=== PATIENT | female | born 1995 | race Caucasian/White ===

== ENCOUNTER 2016-05-28 14:01 | Emergency (ER) | payer OTHER ==
[2016-05-28 14:08] VITALS: BP 142/76; TEMP 97.7
[2016-05-28 15:13] LABS: BASO # 0.1 (0.0-0.2); BASO % 0.4 % (0.0-2.0); GRAN # 12.7 (1.4-6.5); GRAN % 91.6 % (42.2-75.2); HEMATOCRIT 41.7 % (37.0-47.0); HEMOGLOBIN 14.6 g/dl (12.5-16.0); LYMPH # 0.6 (1.2-3.4); LYMPH % 4.1 % (20.0-51.0); MEAN CELL VOLUME 93 fl (80.0-100.0); MEAN CORPUSCULAR HEMOGLOBIN 33 pg (27.0-31.0); MEAN CORPUSCULAR HGB CONC 35 g/dl (33.0-37.0); MONO # 0.5 (0.1-0.6); MONO % 3.5 % (1.7-9.3); PLATELET COUNT 282 K/mm3 (130-400); RED BLOOD COUNT 4.48 M/mm3 (4.10-5.30); REDCELL DISTRIBUTION WIDTH-CV 11.9 % (11.5-14.5); WHITE BLOOD COUNT 13.8 K/mm3 (4.8-10.8)
[2016-05-28] MEDS ORDERED: BENZACLIN 5%-1%1 GEL TOP (15:15)
[2016-05-28 15:29] LABS: ADJUSTED CALCIUM 9.3 mg/dL (8.4-10.2); ALANINE AMINOTRANSFERASE 19 U/L (9-52); ALBUMIN 4.6 gm/dL (3.5-5.0); ALKALINE PHOSPHATASE 52 U/L (50-136); ANION GAP 15 mmol/L (7-16); BLOOD UREA NITROGEN 9 mg/dL (7-17); CALCIUM 9.8 mg/dL (8.4-10.2); CARBON DIOXIDE 21 mmol/L (22-30); CHLORIDE 104 mmol/L (98-107); GLUCOSE 142 mg/dL (74-106); LIPASE 48 U/L (23-300); POTASSIUM 3.9 mmol/L (3.4-5.0); SODIUM 140 mmol/L (137-145); TOTAL PROTEIN 7.8 gm/dL (6.4-8.2)
[2016-05-28 15:32] LABS: C-REACTIVE PROTEIN < 0.5 mg/dL (0.0-0.9)
[2016-05-28] MEDS ORDERED: PHENERGAN 25 TA25 MG PO (15:47)
[2016-05-28 16:17] VITALS: PULSE 77
== END 2016-05-28 16:17 | disposition home or self-care (01) ==
LOC: COL.ER 14:01
PROVIDERS: Physician Assistant
DX: R11.2 Nausea with vomiting, unspecified (principal); R19.7 Diarrhea, unspecified
CPT/HCPCS: J2405; J2765; J7030

== ENCOUNTER 2016-08-06 16:16 | Emergency (ER) | payer OTHER ==
[~2016-08-06] VITALS: Ht 170.2 cm; Wt 68.2 kg
[~2016-08-06 16:16] MED LIST: BENZACLIN 5%-1%1 GEL TOP; PHENERGAN 25 TA25 MG PO
[2016-08-06 16:23] VITALS: TEMP 98.1
[2016-08-06 16:54] LABS: BASO # 0.1 (0.0-0.2); BASO % 0.3 % (0.0-2.0); GRAN # 13.6 (1.4-6.5); GRAN % 92.2 % (42.2-75.2); HEMATOCRIT 38.1 % (37.0-47.0); HEMOGLOBIN 13.3 g/dl (12.5-16.0); LYMPH # 0.6 (1.2-3.4); LYMPH % 4.3 % (20.0-51.0); MEAN CELL VOLUME 93 fl (80.0-100.0); MEAN CORPUSCULAR HEMOGLOBIN 32 pg (27.0-31.0); MEAN CORPUSCULAR HGB CONC 35 g/dl (33.0-37.0); MEAN PLATELET VOLUME 9.1 fl (7.4-10.4); MONO # 0.4 (0.1-0.6); MONO % 2.8 % (1.7-9.3); PLATELET COUNT 253 K/mm3 (130-400); RED BLOOD COUNT 4.12 M/mm3 (4.10-5.30); REDCELL DISTRIBUTION WIDTH-CV 11.9 % (11.5-14.5); WHITE BLOOD COUNT 14.8 K/mm3 (4.8-10.8)
[2016-08-06 16:57] LABS: ADJUSTED CALCIUM 8.9 mg/dL (8.4-10.2); ALBUMIN 4.2 gm/dL (3.5-5.0); BILIRUBIN,TOTAL 1.6 mg/dL (0.0-1.0); CALCIUM 9.1 mg/dL (8.4-10.2); CREATININE, serum 0.73 mg/dL (0.52-1.25); POTASSIUM 4.1 mmol/L (3.4-5.0); TOTAL PROTEIN 6.9 gm/dL (6.4-8.2)
[2016-08-06] MEDS ORDERED: PHENERGAN 25 TA25 MG PO (18:30)
[2016-08-06 18:36] VITALS: BP 109/79; PULSE 87
== END 2016-08-06 18:38 | disposition home or self-care (01) ==
LOC: COL.ER 16:16
PROVIDERS: Emergency Medicine
DX: K52.9 Noninfective gastroenteritis and colitis, unspecified (principal)
CPT/HCPCS: J2550; J7030

== ENCOUNTER 2016-08-09 15:59 | Emergency (ER) | payer OTHER ==
[~2016-08-09] VITALS: Ht 170.2 cm; Wt 68.2 kg
[2016-08-09 16:07] VITALS: BP 133/71; TEMP 98.1
[2016-08-09 17:11] LABS: BASO # 0.1 (0.0-0.2); BASO % 0.4 % (0.0-2.0); EOS % 0.1 % (0-4.0); GRAN % 85.2 % (42.2-75.2); HEMATOCRIT 40.1 % (37.0-47.0); HEMOGLOBIN 14.6 g/dl (12.5-16.0); LYMPH # 1.1 (1.2-3.4); LYMPH % 7.9 % (20.0-51.0); MEAN CELL VOLUME 89 fl (80.0-100.0); MEAN CORPUSCULAR HEMOGLOBIN 32 pg (27.0-31.0); MEAN CORPUSCULAR HGB CONC 36 g/dl (33.0-37.0); MEAN PLATELET VOLUME 8.8 fl (7.4-10.4); MONO # 0.9 (0.1-0.6); PLATELET COUNT 266 K/mm3 (130-400); RED BLOOD COUNT 4.52 M/mm3 (4.10-5.30); REDCELL DISTRIBUTION WIDTH-CV 11.7 % (11.5-14.5); WHITE BLOOD COUNT 14.1 K/mm3 (4.8-10.8)
[2016-08-09 17:35] LABS: ALANINE AMINOTRANSFERASE 26 U/L (9-52); ALBUMIN 4.4 gm/dL (3.5-5.0); ALKALINE PHOSPHATASE 54 U/L (50-136); ANION GAP 15 mmol/L (7-16); BILIRUBIN,TOTAL 1.9 mg/dL (0.0-1.0); BLOOD UREA NITROGEN 13 mg/dL (7-17); CALCIUM 9.3 mg/dL (8.4-10.2); CARBON DIOXIDE 23 mmol/L (22-30); CHLORIDE 99 mmol/L (98-107); CREATININE, serum 0.86 mg/dL (0.52-1.25); GLUCOSE 104 mg/dL (74-106); LIPASE 82 U/L (23-300); POTASSIUM 3.5 mmol/L (3.4-5.0); SODIUM 137 mmol/L (137-145); TOTAL PROTEIN 7.2 gm/dL (6.4-8.2)
[2016-08-09 17:37] LABS: C-REACTIVE PROTEIN < 0.5 mg/dL (0.0-0.9)
[2016-08-09 19:06] LABS: PH 9 (5-8); URINE APPEARANCE Cloudy; URINE BACTERIA None Seen /hpf; URINE BILIRUBIN Negative (NEGATIVE); URINE BLOOD 2+ (NEGATIVE); URINE COLOR Yellow; URINE GLUCOSE Negative (NEGATIVE); URINE KETONE 2+ (NEGATIVE); URINE UROBILINOGEN Negative (NEGATIVE); URINE WBC >50 /hpf
[2016-08-09] MEDS ORDERED: CEFTIN 250250 MG/TAB PO (19:48)
[2016-08-09] MEDS ORDERED: ZOFRAN ODT4 MG PO (19:48)
[2016-08-09] MEDS ORDERED: NORCO 325 MG-51 TAB PO (19:48)
[2016-08-09] MEDS ORDERED: PHENERGAN25 MG RC (20:27)
[2016-08-09 20:55] VITALS: PULSE 76
== END 2016-08-09 20:30 | disposition home or self-care (01) ==
LOC: COL.ER 15:59
PROVIDERS: Nurse Practitioner
DX: N39.0 Urinary tract infection, site not specified (principal); R10.31 Right lower quadrant pain; R10.11 Right upper quadrant pain; R19.7 Diarrhea, unspecified; R11.2 Nausea with vomiting, unspecified
CPT/HCPCS: J2550; J3010; J7030; Q9967

== ENCOUNTER 2016-12-18 08:48 | Emergency (ER) | payer OTHER ==
[~2016-12-18] VITALS: Ht 170.2 cm; Wt 68.2 kg
[~2016-12-18 08:48] MED LIST changes: +CEFTIN 250250 MG/TAB PO; +NORCO 325 MG-51 TAB PO; +PHENERGAN25 MG RC; +ZOFRAN ODT4 MG PO
[2016-12-18 08:52] VITALS: BP 120/81; TEMP 97.5
[2016-12-18] MEDS ORDERED: ANXIETY MEDICATION (08:56)
[2016-12-18 09:22] LABS: BASO # 0.1 (0.0-0.2); BASO % 0.6 % (0.0-2.0); EOS # 0.1 (0.0-0.7); EOS % 0.3 % (0-4.0); GRAN % 84.4 % (42.2-75.2); HEMATOCRIT 42.7 % (37.0-47.0); LYMPH # 1.9 (1.2-3.4); LYMPH % 10.8 % (20.0-51.0); MEAN CELL VOLUME 92 fl (80.0-100.0); MEAN CORPUSCULAR HEMOGLOBIN 32 pg (27.0-31.0); MEAN CORPUSCULAR HGB CONC 35 g/dl (33.0-37.0); MONO # 0.6 (0.1-0.6); MONO % 3.3 % (1.7-9.3); PLATELET COUNT 260 K/mm3 (130-400); RED BLOOD COUNT 4.66 M/mm3 (4.10-5.30); WHITE BLOOD COUNT 17.7 K/mm3 (4.8-10.8)
[2016-12-18 09:32] LABS: ADJUSTED CALCIUM 9.2 mg/dL (8.4-10.2); ALBUMIN 4.8 gm/dL (3.5-5.0); BILIRUBIN,TOTAL 1.7 mg/dL (0.0-1.0); CALCIUM 9.8 mg/dL (8.4-10.2); CREATININE, serum 0.89 mg/dL (0.52-1.25); POTASSIUM 3.9 mmol/L (3.4-5.0); TOTAL PROTEIN 7.8 gm/dL (6.4-8.2)
[2016-12-18 10:20] LABS: COLLECTION METHOD CLEAN CATCH
[2016-12-18 10:39] LABS: MUCOUS Present /lpf; PH 5 (5-8); URINE APPEARANCE Hazy; URINE BACTERIA None Seen /hpf; URINE BILIRUBIN Negative (NEGATIVE); URINE BLOOD Negative (NEGATIVE); URINE COLOR Yellow; URINE GLUCOSE Negative (NEGATIVE); URINE KETONE 2+ (NEGATIVE); URINE LEUKOCYTE ESTERASE Trace (NEGATIVE); URINE PROTEIN(semi-quant) 1+ (NEGATIVE); URINE RBC 0-2 /hpf; URINE UROBILINOGEN Negative (NEGATIVE)
[2016-12-18] MEDS ORDERED: ZOFRAN ODT4 MG PO (11:59)
[2016-12-18 12:17] VITALS: PULSE 72
== END 2016-12-18 12:17 | disposition home or self-care (01) ==
LOC: COL.ER 08:48
PROVIDERS: Physician Assistant
DX: R11.2 Nausea with vomiting, unspecified (principal); R19.7 Diarrhea, unspecified; F41.9 Anxiety disorder, unspecified; Z32.02 Encounter for pregnancy test, result negative
CPT/HCPCS: J1200; J2060; J2405; J2550; J7030; J7040

== ENCOUNTER → 2017-03-29 | Outpatient (CLI) | payer OTHER ==
[~2017-03-29] MED LIST changes: +ANXIETY MEDICATION
== END ==
LOC: COL.RAD 07:28
DX: R11.2 Nausea with vomiting, unspecified (principal)
CPT/HCPCS: A9541

== ENCOUNTER → 2020-06-27 | Outpatient (CLI) | payer BC | LOC: COL.RAD 13:20 | DX: K42.9 Umbilical hernia without obstruction or gangrene (principal) ==

== ENCOUNTER → 2020-07-24 | Outpatient (CLI) | payer BC | LOC: COL.RAD 07-08 10:30 | DX: R22.2 Localized swelling, mass and lump, trunk (principal) ==

== ENCOUNTER 2020-07-25 12:37 | Emergency (ER) | payer BC ==
[~2020-07-25] VITALS: Ht 170.2 cm; Wt 68.6 kg
[2020-07-25 14:28] LABS: HEMOGLOBIN 13.9 g/dl (12.5-16.0); MEAN CELL VOLUME 91 fl (80.0-100.0); MEAN CORPUSCULAR HEMOGLOBIN 32 pg (27.0-31.0); MEAN CORPUSCULAR HGB CONC 36 g/dl (33.0-37.0); MEAN PLATELET VOLUME 8.8 fl (7.4-10.4); PLATELET COUNT 297 K/mm3 (130-400); RED BLOOD COUNT 4.31 M/mm3 (4.10-5.30)
[2020-07-25 14:40] LABS: ALANINE AMINOTRANSFERASE 19 U/L (4-34); ALBUMIN 4.5 gm/dL (3.5-5.0); ALKALINE PHOSPHATASE 42 U/L (50-136); AST,SGOT 32 U/L (15-37); BILIRUBIN,TOTAL 1.5 mg/dL (0.0-1.0); BLOOD UREA NITROGEN 15 mg/dL (7-17); CALCIUM 9.7 mg/dL (8.4-10.2); CARBON DIOXIDE 20 mmol/L (22-30); CHLORIDE 109 mmol/L (98-107); GLUCOSE 141 mg/dL (74-106); POTASSIUM 4.1 mmol/L (3.4-5.0); TOTAL PROTEIN 7.7 gm/dL (6.4-8.2)
[2020-07-25 14:55] LABS: BAND 1 % (0-10); LYMPHOCYTE 7 % (20.0-51.0); NEUTROPHILS 89 % (42.0-75.2)
[2020-07-25 14:58] LABS: PLATELET ESTIMATE NORMAL (NORMAL)
[2020-07-25 15:40] LABS: SODIUM 137 mmol/L (137-145)
[2020-07-25 15:41] LABS: ANION GAP 8 mmol/L (7-16); C-REACTIVE PROTEIN < 0.5 mg/dL (0.0-0.9); LIPASE 64 U/L (23-300)
[2020-07-25] MEDS ORDERED: ZOFRAN ODT4 MG PO (16:50)
[2020-07-25] MEDS ORDERED: NORCO 325 MG-51 TAB PO (16:50)
[2020-07-25 17:13] VITALS: BP 120/57; PULSE 60; TEMP 98.1
== END 2020-07-25 17:16 | disposition home or self-care (01) ==
LOC: COL.ER 12:37
PROVIDERS: Family Medicine
DX: K52.9 Noninfective gastroenteritis and colitis, unspecified (principal); Z32.02 Encounter for pregnancy test, result negative
CPT/HCPCS: J2270; J2405; J2550; J7120; Q9967

== ENCOUNTER 2020-08-03 20:44 | Emergency (ER) | payer BC ==
[~2020-08-03] VITALS: Ht 170.2 cm; Wt 68.2 kg
[2020-08-03 21:16] LABS: BASO % 0.2 % (0.0-2.0); GRAN # 9.3 (1.4-6.5); GRAN % 84.4 % (42.2-75.2); HEMATOCRIT 44.3 % (37.0-47.0); HEMOGLOBIN 15.4 g/dl (12.5-16.0); LYMPH # 1.2 (1.2-3.4); LYMPH % 10.5 % (20.0-51.0); MEAN CELL VOLUME 92 fl (80.0-100.0); MEAN CORPUSCULAR HEMOGLOBIN 32 pg (27.0-31.0); MEAN CORPUSCULAR HGB CONC 35 g/dl (33.0-37.0); MEAN PLATELET VOLUME 8.6 fl (7.4-10.4); MONO # 0.5 (0.1-0.6); MONO % 4.5 % (1.7-9.3); PLATELET COUNT 351 K/mm3 (130-400); RED BLOOD COUNT 4.83 M/mm3 (4.10-5.30); REDCELL DISTRIBUTION WIDTH-CV 12.3 % (11.5-14.5)
[2020-08-03 21:26] LABS: ALBUMIN 4.9 gm/dL (3.5-5.0); BILIRUBIN,TOTAL 1.8 mg/dL (0.0-1.0); CALCIUM 10.1 mg/dL (8.4-10.2); CREATININE, serum 0.98 (0.52-1.25); TOTAL PROTEIN 8.5 gm/dL (6.4-8.2)
[2020-08-03 22:17] LABS: COLLECTION METHOD CLEAN CATCH
[2020-08-03 22:25] LABS: MUCOUS Present /lpf; PH 6 (5-8); URINE APPEARANCE Hazy; URINE BACTERIA None Seen /hpf; URINE BILIRUBIN Negative (NEGATIVE); URINE BLOOD Negative (NEGATIVE); URINE COLOR Yellow; URINE GLUCOSE Negative (NEGATIVE); URINE KETONE 1+ (NEGATIVE); URINE LEUKOCYTE ESTERASE Negative (NEGATIVE); URINE NITRATE Negative (NEGATIVE); URINE PROTEIN(semi-quant) 3+ (NEGATIVE); URINE RBC 0-2 /hpf; URINE UROBILINOGEN Negative (NEGATIVE)
[2020-08-03] MEDS ORDERED: ZOFRAN ODT4 MG PO (23:17)
[2020-08-04 00:20] VITALS: BP 136/77; PULSE 90; TEMP 97.8
== END 2020-08-04 00:20 | disposition home or self-care (01) ==
LOC: COL.ER 20:44
PROVIDERS: Emergency Medicine
DX: A08.4 Viral intestinal infection, unspecified (principal)
CPT/HCPCS: J2060; J2405; J7030

== ENCOUNTER 2020-10-30 11:29 | Emergency (ER) | payer SELFPAY ==
[~2020-10-30] VITALS: Ht 170.2 cm; Wt 70.5 kg
[2020-10-30 12:13] VITALS: BP 138/84; TEMP 97.8
[2020-10-30 13:50] LABS: COLLECTION METHOD CLEAN CATCH
[2020-10-30 13:58] LABS: MUCOUS Present /lpf; PH 6 (5-8); URINE APPEARANCE Hazy; URINE BACTERIA Rare /hpf; URINE BILIRUBIN Negative (NEGATIVE); URINE BLOOD Negative (NEGATIVE); URINE COLOR Yellow; URINE GLUCOSE Negative (NEGATIVE); URINE KETONE 2+ (NEGATIVE); URINE LEUKOCYTE ESTERASE Negative (NEGATIVE); URINE NITRATE Negative (NEGATIVE); URINE PROTEIN(semi-quant) 2+ (NEGATIVE); URINE RBC 0-2 /hpf; URINE UROBILINOGEN Negative (NEGATIVE)
[2020-10-30 14:23] VITALS: PULSE 72
== END 2020-10-30 14:23 | disposition home or self-care (01) ==
LOC: COL.ER 11:29
PROVIDERS: Student in an Organized Health Care Education/Training Program
DX: A08.4 Viral intestinal infection, unspecified (principal); E86.0 Dehydration; F17.200 Nicotine dependence, unspecified, uncomplicated
CPT/HCPCS: J1630; J7030

== ENCOUNTER 2020-12-10 10:24 | Emergency (ER) | payer OTHER ==
[~2020-12-10] VITALS: Ht 170.2 cm; Wt 71.4 kg
[2020-12-10 10:58] VITALS: TEMP 97.2
[2020-12-10 11:29] LABS: COLLECTION METHOD CLEAN CATCH
[2020-12-10 11:35] LABS: BASO # 0.1 K/mm3 (0.0-0.2); BASO % 0.5 % (0.0-2.0); EOS % 0.2 % (0-4.0); GRAN # 12.8 K/mm3 (1.4-6.5); GRAN % 89.5 % (42.2-75.2); HEMATOCRIT 41.9 % (37.0-47.0); HEMOGLOBIN 14.7 g/dl (12.5-16.0); LYMPH # 0.7 K/mm3 (1.2-3.4); MEAN CELL VOLUME 92 fl (80.0-100.0); MEAN CORPUSCULAR HEMOGLOBIN 32 pg (27.0-31.0); MEAN CORPUSCULAR HGB CONC 35 g/dl (33.0-37.0); MEAN PLATELET VOLUME 9.2 fl (7.4-10.4); MONO # 0.6 K/mm3 (0.1-0.6); MONO % 4.4 % (1.7-9.3); PLATELET COUNT 284 K/mm3 (130-400); RED BLOOD COUNT 4.54 M/mm3 (4.10-5.30)
[2020-12-10 11:36] LABS: MUCOUS Present /lpf; PH 5 (5-8); URINE APPEARANCE Hazy; URINE BACTERIA Rare /hpf; URINE BILIRUBIN Negative (NEGATIVE); URINE BLOOD Negative (NEGATIVE); URINE COLOR Yellow; URINE GLUCOSE Negative (NEGATIVE); URINE KETONE 2+ (NEGATIVE); URINE LEUKOCYTE ESTERASE Negative (NEGATIVE); URINE NITRATE Negative (NEGATIVE); URINE PROTEIN(semi-quant) 2+ (NEGATIVE); URINE RBC 0-2 /hpf; URINE UROBILINOGEN Negative (NEGATIVE)
[2020-12-10 12:46] LABS: TOTAL PROTEIN 7.6 gm/dL (6.2-8.1)
[2020-12-10 13:14] LABS: ALBUMIN 4.5 gm/dL (3.5-5.0); BILIRUBIN,TOTAL 2.1 mg/dL (0.2-1.2); C-REACTIVE PROTEIN 0.3 mg/dL (0.00-0.50); CALCIUM 9.7 mg/dL (8.4-10.2); CREATININE, serum 1.09 mg/dL (0.57-1.11); POTASSIUM 4.1 mmol/L (3.5-4.5)
[2020-12-10] MEDS ORDERED: ZOFRAN ODT4 MG PO (13:16)
[2020-12-10 13:18] VITALS: BP 122/81; PULSE 67
== END 2020-12-10 13:27 | disposition home or self-care (01) ==
LOC: COL.ER 10:24
PROVIDERS: Nurse Practitioner
DX: R11.2 Nausea with vomiting, unspecified (principal); R19.7 Diarrhea, unspecified
CPT/HCPCS: J1200; J1630; J7030

== ENCOUNTER 2021-01-17 10:04 | Emergency (ER) | payer OTHER ==
[~2021-01-17] VITALS: Ht 170.2 cm; Wt 72.7 kg
[2021-01-17 10:12] VITALS: TEMP 97.5
[2021-01-17 10:34] LABS: BASO # 0.1 K/mm3 (0.0-0.2); BASO % 0.5 % (0.0-2.0); GRAN # 11.2 K/mm3 (1.4-6.5); GRAN % 84.1 % (42.2-75.2); HEMATOCRIT 39.2 % (37.0-47.0); LYMPH # 1.3 K/mm3 (1.2-3.4); LYMPH % 9.5 % (20.0-51.0); MEAN CELL VOLUME 89 fl (80.0-100.0); MEAN CORPUSCULAR HEMOGLOBIN 32 pg (27.0-31.0); MEAN CORPUSCULAR HGB CONC 36 g/dl (33.0-37.0); MEAN PLATELET VOLUME 8.7 fl (7.4-10.4); MONO # 0.7 K/mm3 (0.1-0.6); MONO % 5.5 % (1.7-9.3); PLATELET COUNT 285 K/mm3 (130-400); RED BLOOD COUNT 4.39 M/mm3 (4.10-5.30); REDCELL DISTRIBUTION WIDTH-CV 11.7 % (11.5-14.5)
[2021-01-17 10:48] LABS: ALBUMIN 4.6 gm/dL (3.5-5.0); BILIRUBIN,TOTAL 0.9 mg/dL (0.2-1.2); CALCIUM 9.4 mg/dL (8.4-10.2); CREATININE, serum 1.03 mg/dL (0.57-1.11); POTASSIUM 3.8 mmol/L (3.5-4.5); TOTAL PROTEIN 7.5 gm/dL (6.2-8.1)
[2021-01-17 11:33] VITALS: BP 116/71; PULSE 61
== END 2021-01-17 11:34 | disposition home or self-care (01) ==
LOC: COL.ER 10:04
PROVIDERS: Emergency Medicine
DX: R11.2 Nausea with vomiting, unspecified (principal); D72.829 Elevated white blood cell count, unspecified
CPT/HCPCS: J1630; J7030

== ENCOUNTER 2021-02-17 10:34 | Emergency (ER) | payer OTHER ==
[~2021-02-17] VITALS: Ht 170.2 cm; Wt 72.7 kg
[2021-02-17 10:42] VITALS: TEMP 97.3
[2021-02-17 12:08] VITALS: BP 105/75; PULSE 85
== END 2021-02-17 12:09 | disposition home or self-care (01) ==
LOC: COL.ER 10:34
DX: R11.2 Nausea with vomiting, unspecified (principal)
CPT/HCPCS: J1630; J7030

== ENCOUNTER 2021-04-20 07:06 | Emergency (ER) | payer SELFPAY ==
[~2021-04-20] VITALS: Ht 170.2 cm; Wt 66.8 kg
[2021-04-20 07:13] VITALS: TEMP 97.7
[2021-04-20 08:06] LABS: BASO % 0.5 % (0.0-2.0); EOS % 0.3 % (0.0-4.0); GRAN # 5.3 K/mm3 (1.4-6.5); GRAN % 66.5 % (42.2-75.2); HEMATOCRIT 41.7 % (37.0-47.0); HEMOGLOBIN 14.6 g/dl (12.5-16.0); LYMPH # 1.9 K/mm3 (1.2-3.4); LYMPH % 23.7 % (20.0-51.0); MEAN CELL VOLUME 93 fl (80.0-100.0); MEAN CORPUSCULAR HEMOGLOBIN 33 pg (27-31); MEAN CORPUSCULAR HGB CONC 35 g/dl (33.0-37.0); MEAN PLATELET VOLUME 9.1 fl (7.4-10.4); MONO # 0.7 K/mm3 (0.1-0.6); MONO % 8.6 % (1.7-9.3); PLATELET COUNT 323 K/mm3 (130-400); RED BLOOD COUNT 4.48 M/mm3 (4.10-5.30); REDCELL DISTRIBUTION WIDTH-CV 12.3 % (11.5-14.5)
[2021-04-20 08:14] LABS: ALBUMIN 4.8 gm/dL (3.5-5.0); BILIRUBIN,TOTAL 2.7 mg/dL (0.2-1.2); CALCIUM 9.6 mg/dL (8.4-10.2); CREATININE, serum 1.07 mg/dL (0.57-1.11); POTASSIUM 3.4 mmol/L (3.5-4.5); TOTAL PROTEIN 7.5 gm/dL (6.2-8.1)
[2021-04-20 09:12] VITALS: BP 130/87; PULSE 54
== END 2021-04-20 09:22 | disposition home or self-care (01) ==
LOC: COL.ER 07:06
PROVIDERS: Student in an Organized Health Care Education/Training Program
DX: F12.10 Cannabis abuse, uncomplicated (principal); R11.10 Vomiting, unspecified
CPT/HCPCS: J1630; J7030

== ENCOUNTER 2021-10-24 13:01 | Emergency (ER) | payer BC ==
[~2021-10-24] VITALS: Ht 170.2 cm; Wt 69.5 kg
[2021-10-24 14:49] LABS: HEMATOCRIT 38.6 % (37.0-47.0); HEMOGLOBIN 13.8 g/dl (12.5-16.0); MEAN CELL VOLUME 92 fl (80.0-100.0); MEAN CORPUSCULAR HEMOGLOBIN 33 pg (27-31); MEAN CORPUSCULAR HGB CONC 36 g/dl (33.0-37.0); MEAN PLATELET VOLUME 8.9 fl (7.4-10.4); PLATELET COUNT 239 K/mm3 (130-400); RED BLOOD COUNT 4.22 M/mm3 (4.10-5.30); REDCELL DISTRIBUTION WIDTH-CV 12.1 % (11.5-14.5)
[2021-10-24 15:02] VITALS: TEMP 97.8
[2021-10-24 15:06] LABS: ALBUMIN 4.1 gm/dL (3.5-5.0); C-REACTIVE PROTEIN 0.43 mg/dL (0.00-0.50); CALCIUM 8.9 mg/dL (8.4-10.2); CREATININE, serum 0.91 mg/dL (0.57-1.11); TOTAL PROTEIN 6.6 gm/dL (6.2-8.1)
[2021-10-24 15:46] LABS: BAND 17 % (0-10); LYMPHOCYTE 4 % (20.0-51.0); NEUTROPHILS 78 % (42.0-75.2); PLATELET ESTIMATE NORMAL (NORMAL)
[2021-10-24] MEDS ORDERED: PHENERGAN 25 TA25 MG PO (16:21)
[2021-10-24 16:40] VITALS: BP 118/78; PULSE 60
== END 2021-10-24 16:40 | disposition home or self-care (01) ==
LOC: COL.ER 13:01
PROVIDERS: Nurse Practitioner
DX: R11.2 Nausea with vomiting, unspecified (principal); Z28.310 Unvaccinated for COVID-19
CPT/HCPCS: J2550; J2765; J7030

== ENCOUNTER 2021-10-26 09:42 | Emergency (ER) | payer BC ==
[~2021-10-26] VITALS: Ht 170.2 cm; Wt 64.1 kg
[2021-10-26 10:16] VITALS: TEMP 97.5
[2021-10-26 11:34] LABS: COLLECTION METHOD CLEAN CATCH
[2021-10-26 11:40] LABS: BASO % 0.4 % (0.0-2.0); GRAN % 80.6 % (42.2-75.2); HEMATOCRIT 43.4 % (37.0-47.0); LYMPH # 1.2 K/mm3 (1.2-3.4); LYMPH % 12.5 % (20.0-51.0); MEAN CELL VOLUME 89 fl (80.0-100.0); MEAN CORPUSCULAR HEMOGLOBIN 32 pg (27-31); MEAN CORPUSCULAR HGB CONC 36 g/dl (33.0-37.0); MEAN PLATELET VOLUME 8.9 fl (7.4-10.4); MONO # 0.6 K/mm3 (0.1-0.6); PLATELET COUNT 292 K/mm3 (130-400); RED BLOOD COUNT 4.89 M/mm3 (4.10-5.30); REDCELL DISTRIBUTION WIDTH-CV 11.9 % (11.5-14.5)
[2021-10-26 11:45] LABS: HEMOGLOBIN 15.8 g/dl (12.5-16.0)
[2021-10-26 11:46] LABS: MUCOUS Present (NOT PRESENT); URINE BACTERIA Rare /hpf (NONE SEEN)
[2021-10-26 11:47] LABS: PH 7.5 (5.0-8.5); URINE APPEARANCE Clear (CLEAR/HAZY); URINE COLOR Yellow (YELLOW); URINE GLUCOSE Negative (NEGATIVE); URINE KETONE 4+ (NEGATIVE); URINE PROTEIN(semi-quant) 2+ (NEGATIVE)
[2021-10-26 11:48] LABS: URINE BLOOD TRACE-INTACT (NEGATIVE); URINE NITRATE Negative (NEGATIVE); URINE UROBILINOGEN 0.2 E.U/dL (0.2-1.0)
[2021-10-26 11:57] LABS: ALBUMIN 4.9 gm/dL (3.5-5.0); BILIRUBIN,TOTAL 2.8 mg/dL (0.2-1.2); CALCIUM 9.8 mg/dL (8.4-10.2); POTASSIUM 3.4 mmol/L (3.5-4.5); TOTAL PROTEIN 7.9 gm/dL (6.2-8.1)
[2021-10-26] MEDS ORDERED: PHENERGAN25 MG RC (12:53)
[2021-10-26 13:08] VITALS: BP 105/90; PULSE 98
== END 2021-10-26 13:08 | disposition home or self-care (01) ==
LOC: COL.ER 09:42
PROVIDERS: Physician Assistant
DX: R11.15 Cyclical vomiting syndrome unrelated to migraine (principal)
CPT/HCPCS: J0780; J7030